=== PATIENT | male | born 1980 | race Hispanic/Latino ===

== ENCOUNTER 2020-07-17 09:05 | Outpatient (CLI) | payer OTHER | END 2020-07-17 09:06 | disposition home or self-care (01) | LOC: BICRAD 09:05 | PROVIDERS: ATTEND Family Medicine | DX: M54.5 Low back pain (principal); R10.9 Unspecified abdominal pain; M43.16 Spondylolisthesis, lumbar region | CPT/HCPCS: 72100; 74018 ==